=== PATIENT | male | born 1975 | race American Indian/Alaskan Native ===

== ENCOUNTER 2020-05-19 11:55 | Emergency (ER) | payer SELFPAY ==
--- NOTE | 2020-05-19 13:13 | Event Note ---
ED Screening Note Date of service: 05/19/20 Time: 13:09 ED Screening Note: 44-year-old -[place] male presents to the emergency room reporting that he might help to get off of alcohol. Patient denies any suicidal or homicidal ideations. This initial assessment/diagnostic orders/clinical plan/treatment(s) is/are subject to change based on patients health status, clinical progression and re- assessment by fellow clinical providers in the ED. Further treatment and workup at subsequent clinical providers discretion. Patient/guardian urged not to elope from the ED as their condition may be serious if not clinically assessed and managed. Initial orders include:
[2020-05-19] MEDS ORDERED: chlordiazePOXIDE 25 MG CAP PO PRN ×2 (13:50)
[2020-05-19] MEDS ORDERED: LORazepam 2 MG/ML VIAL IV PRN (13:50)
--- NOTE | 2020-05-19 13:51 | Emergency Department Report ---
<DALTON WOLFE - Last Filed: 05/19/20 17:48> ED General Adult HPI - General Chief complaint: Alcohol Stated complaint: DETOX Time Seen by Provider: 05/19/20 13:48 - Related Data Previous Rx's Medication Instructions Recorded Last Taken Type Multivitamin with Folic Acid [[facility] 400 mcg PO QDAY #30 tablet 05/19/20 Unknown Rx One Daily Essential Tablet] Potassium Chloride 20 meq PO QDAY #30 packet 05/19/20 Unknown Rx Allergies Allergy/AdvReac Type Severity Reaction Status Date / Time No Known Allergies Allergy Unverified 05/19/20 12:03 ED Past Medical Hx - Medications Home Medications: Home Medications Medication Instructions Recorded Confirmed Last Taken Type Multivitamin with Folic Acid [[facility] 400 mcg PO QDAY #30 tablet 05/19/20 Unknown Rx One Daily Essential Tablet] Potassium Chloride 20 meq PO QDAY #30 packet 05/19/20 Unknown Rx ED Course - Reevaluation(s) Reevaluation #2: 05/19/20 16:56 gate steady, denies Si/HI, provided outpatient resources, no signs of etoh withdrawal. Case d/w who recommends [facility] during insurance status. Repeat vital normal without tachycardia. Patient's cousin will pick him up. ED Medical Decision Making - Lab Data Result diagrams: 05/19/20 13:36 05/19/20 13:36 ED Disposition Clinical Impression: Hypokalemia, General medical exam Alcohol intoxication Qualifiers: Complication of substance-induced condition: uncomplicated Qualified Code(s): F10.920 - Alcohol use, unspecified with intoxication, uncomplicated Disposition: DC-01 TO HOME OR SELFCARE Is pt being admited?: No Condition: Good Instructions: Hypokalemia, Binge-Drinking Information, Adult Additional Instructions: We recommend that patient avoid consumption of alcohol, cocaine and recreational drugs. Follow-up with a primary care doctor within the next week. Follow-up with outpatient drug abuse resources as recommended. Please return to the emergency room right away with new pain, worsened pain, migration of pain, projectile vomiting, change in mental status, confusion, inability to tolerate liquid feeds, new, worsened or different symptoms not present on the initial emergency room evaluation. Professional and Agency Contacts To help [facility] (15/09) [place] Crisis Line: Suicide Prevention Line: Crisis Text Line: Text [place] to 106524 Emergency: 911 Outpatient COMMUNITY Behavioral Health Resources: [place]: [facility] [address] [place], [place] [address] [place]: [facility] [address] [place] [address] Thursday thru Thursday - 8am - 5pm Call to schedule an assessment for mental health and substance abuse programs [place]: [facility] Address: [address] [place] [address] Thursday thru Thursday- 7am-2pm [facility] Address: [address] [place] [address] Thursday thru Thursday: 8:30AM-5PM SUBSTANCE ABUSE PROGRAMS: [facility]: Location: [place], [place] Address: [address] [place] [address] [facility]: Address: [address] [place] [address] [facility]: Address: [address] [place] [address] [facility]: Address: [address] [place] [address] Prescriptions: Multivitamin with Folic Acid [[facility] One Daily Essential Tablet] 400 mcg PO QDAY #30 tablet Potassium Chloride 20 meq PO QDAY #30 packet Referrals: [facility] [Provider Group] - 3-5 Days [facility] [Outside] - 3-5 Days Time of Disposition: 16:57 <ALIZA TOURE - Last Filed: 05/20/20 10:43> ED General Adult HPI - General PUI?: No Source: patient Mode of arrival: Ambulatory Limitations: Other (Patient is intoxicated) - History of Present Illness Initial comments: The patient was evaluated in the emergency department for symptoms described in the history of present illness. He/she was evaluated in the context of the global COVID-19 pandemic, which necessitated consideration that the patient might be at risk for infection with the virus that causes COVID-19. Institutional protocols and algorithms that pertain to the evaluation of patients at risk for COVID-19 are in a state of rapid change based on information released by regulatory bodies including the CDC and federal and state organizations. These policies and algorithms were followed during the patient's care in the emergency department. Please note that these policies, procedures and recommendations changed on a rapid basis. The patient is a 44-year-old gentleman, who is not known to myself previously, who presents to the ER today with a complaint of painless request for alcohol detox. He denies overdose intentionally, homicidality, suicidality, hallucinati ons, loss of taste and smell, physical pain, urinary symptoms, and his last alcoholic beverage was earlier on today. He denies additional injuries and complaints. His request for alcohol detox at this point time is constant, painless, does not radiate anywhere, and he does not endorse any exacerbating or relieving factors. Improves with: none Worsens with: none Associated Symptoms: denies other symptoms ED Review of Systems ROS: Stated complaint: DETOX Other details as noted in HPI Comment: All other systems reviewed and negative ED Past Medical Hx - Past Medical History Previous Medical History?: No - Surgical History Past Surgical History?: No - Social History Smoking Status: Current Some Day Smoker Substance Use Type: Alcohol ED Physical Exam - General Limitations: Other (The patient is currently intoxicated) General appearance: in no apparent distress, appears intoxicated - Head Head exam: Present: atraumatic, normocephalic - Eye Eye exam: Present: normal appearance, EOMI. Absent: nystagmus - ENT ENT exam: Present: normal exam, normal orophraynx, mucous membranes moist, normal external ear exam - Neck Neck exam: Present: normal inspection, full ROM. Absent: tenderness, meningismus - Respiratory Respiratory exam: Present: normal lung sounds bilaterally. Absent: respiratory distress, wheezes, rales, rhonchi, stridor, decreased breath sounds - Cardiovascular Cardiovascular Exam: Present: regular rate, normal rhythm, normal heart sounds. Absent: bradycardia, tachycardia, irregular rhythm, systolic murmur, diastolic murmur, rubs, gallop - GI/Abdominal GI/Abdominal exam: Present: soft. Absent: distended, tenderness, guarding, rebound, rigid, pulsatile mass - Rectal Rectal exam: Present: deferred - Extremities Exam Extremities exam: Present: normal inspection, full ROM, other (2+ pulses noted in the bilateral upper and lower extremities. There is no palpable cord. negative Homans sign. Muscular compartments are soft. The pelvis is stable.). Absent: pedal edema, calf tenderness - Back Exam Back exam: Present: normal inspection, full ROM. Absent: tenderness, CVA te nderness (R), CVA tenderness (L), paraspinal tenderness, vertebral tenderness - Neurological Exam Neurological exam: Present: alert, other (No facial droop. Tongue midline. Extraocular movements intact bilaterally. Facial sensation intact to light touch in V1, V2, V3 distribution bilaterally. 5 and a 5 strength in 4 extremities. Sensation intact to light touch in 4 extremities.). Absent: motor sensory deficit - Psychiatric Psychiatric exam: Absent: homicidal ideation, suicidal ideation - Skin Skin exam: Present: warm, dry, intact, normal color. Absent: rash ED Course Vital Signs 05/19/20 05/19/20 12:07 16:39 Temperature 98.3 F 97.4 F L Pulse Rate 82 77 Respiratory 20 20 Rate Blood Pressure 154/86 Blood Pressure 133/97 [Left] O2 Sat by Pulse 98 98 Oximetry - Reevaluation(s) Reevaluation #1: 05/19/20 15:33 Care will be transferred to the oncoming ER physician to reassess and discharge once clinically sober. Blood alcohol level 0.35. ED Medical Decision Making - Lab Data Result diagrams: 05/19/20 13:36 05/19/20 13:36 Vital Signs 05/19/20 12:07 Temperature 98.3 F Pulse Rate 82 Respiratory 20 Rate Blood Pressure 154/86 O2 Sat by Pulse 98 Oximetry Lab Results 05/19/20 05/19/20 05/19/20 Range/Units 13:36 13:36 13:36 Hgb (11.8-15.2) gm/dl Hct (35.5-45.6) % Plt Count (140-440) K/mm3 Sodium 140 (137-145) mmol/L Potassium 3.4 L (3.6-5.0) mmol/L Chloride 101.0 (98-107) mmol/L Carbon Dioxide 28 (22-30) mmol/L Anion Gap 14 mmol/L BUN 7 L (9-20) mg/dL Creatinine 0.8 (0.8-1.3) mg/dL Estimated GFR > 60 ml/min BUN/Creatinine Ratio 9 % Glucose 174 H (75-100) mg/dL Calcium 8.8 (8.4-10.2) mg/dL Magnesium (1.7-2.3) mg/dL Total Bilirubin 0.30 (0.1-1.2) mg/dL AST 20 (5-40) units/L ALT 14 (7-56) units/L Alkaline Phosphatase 46 (35-129) units/L Total Creatine Kinase (55-170) units/L Total Protein 7.2 (6.3-8.2) g/dL Albumin 4.6 (3.9-5) g/dL Albumin/Globulin Ratio 1.8 % Salicylates < 0.3 L (2.8-20.0) mg/dL Acetaminophen 5.0 L (10.0-30.0) ug/mL 05/19/20 05/19/20 Range/Units 13:36 13:36 Hgb 14.8 (11.8-15.2) gm/dl Hct 43.4 (35.5-45.6) % Plt Count 217 (140-440) K/mm3 Sodium (137-145) mmol/L Potassium (3.6-5.0) mmol/L Chloride (98-107) mmol/L Carbon Dioxide (22-30) mmol/L Anion Gap mmol/L BUN (9-20) mg/dL Creatinine (0.8-1.3) mg/dL Estimated GFR ml/min BUN/Creatinine Ratio % Glucose (75-100) mg/dL Calcium (8.4-10.2) mg/dL Magnesium 2.00 (1.7-2.3) mg/dL Total Bilirubin (0.1-1.2) mg/dL AST (5-40) units/L ALT (7-56) units/L Alkaline Phosphatase (35-129) units/L Total Creatine Kinase 73 (55-170) units/L Total Protein (6.3-8.2) g/dL Albumin (3.9-5) g/dL Albumin/Globulin Ratio % Salicylates (2.8-20.0) mg/dL Acetaminophen (10.0-30.0) ug/mL - Medical Decision Making Differential diagnosis, including but not limited to: Alcohol intoxication, electrolyte derangement, general medical exam Assessment and plan: 44-year-old gentleman with what appears to be simple alcohol intoxication, he is not homicidal, not suicidal, he is pleasant and cooperative. Laboratory studies unremarkable with exception of very mild hypokalemia. Patient does not meet criteria for 1013 hold. Patient will be provided with outpatient resources for alcohol detox. He is not currently tachycardic or tremulous, and he has no tongue fasciculations. Holding orders are initiated. Patient will be observed in this emergency room pending clinical sobriety. Once clinically sober, or if/when a sober adult can come by and pick him up, he may be discharged with outpatient alcohol detox follow-up/resources. Do not have clinical question at this time for psychiatry team or mental health providers, as this patient is not homicidal or suicidal at this time, and once ailyn up, should be suitable for outpatient management Critical care attestation.: If time is entered above; I have spent that time in minutes in the direct care of this critically ill patient, excluding procedure time. ED Disposition Is pt being admited?: No Does the pt Need Aspirin: No
[2020-05-19 14:01] LABS: Hematocrit 43.4 % (35.5-45.6); Hemoglobin 14.8 gm/dl (11.8-15.2)
[2020-05-19 14:17] LABS: Alanine Aminotransferase 14 units/L (7-56); Albumin 4.6 g/dL (3.9-5); BUN/Creatinine Ratio 9; Blood Urea Nitrogen 7 mg/dL (9-20); Calcium 8.8 mg/dL (8.4-10.2); Hemolysis Index 5
[2020-05-19] MEDS ORDERED: POTASSIUM CHLORIDE ER 20 MEQ TAB PO ONE (14:35)
[2020-05-19] MEDS ORDERED: ACETAMINOPHEN 325 MG TAB PO PRN (14:35)
[2020-05-19] MEDS ORDERED: FAMOTIDINE 20 MG TAB PO PRN (14:35)
[2020-05-19] MEDS ORDERED: DEXTROSE 50% IN WATER (25GM) 50 ML SYRINGE IV PRN (14:35)
[2020-05-19] MEDS ORDERED: ONDANSETRON 4 MG ODT TAB PO PRN (14:35)
[2020-05-19 16:45] VITALS: BP 133/97
== END 2020-05-19 18:08 | disposition home or self-care (01) ==
LOC: ED 11:55
DX: F10.920 Alcohol use, unspecified with intoxication, uncomplicated (principal); E87.6 Hypokalemia; F17.200 Nicotine dependence, unspecified, uncomplicated; Z00.01 Encounter for general adult medical examination with abnormal findings; Z79.899 Other long term (current) drug therapy
CPT/HCPCS: 36415; 80053; 80320; 82550; 83735; 85014; 85018; 85049; G0480

== ENCOUNTER 2020-05-19 23:57 | Emergency (ER) | payer OTHER ==
[2020-05-20 03:23] VITALS: BP 144/87
[2020-05-20 03:58] LABS: Bilirubin,Urine NEG (Negative); Blood,Urine NEG (Negative); Color,Urine Yellow (Yellow); Mucus,Urine FEW /HPF; Protein,Urine <15 mg/dL mg/dL (Negative)
[2020-05-20 04:05] LABS: Amphetamine Screen,Urine PRESUMPTIVE NEGATIVE; Benzodiazepines Screen,Urine PRESUMPTIVE NEGATIVE; Cannabinoid Screen,Urine PRESUMPTIVE NEGATIVE; Cocaine Screen,Urine PRESUMPTIVE NEGATIVE; Methadone Screen,Urine PRESUMPTIVE NEGATIVE; Opiate Screen,Urine PRESUMPTIVE NEGATIVE
== END 2020-05-20 03:30 | disposition left against medical advice (07) ==
LOC: ED 23:57
DX: F10.239 Alcohol dependence with withdrawal, unspecified (principal); Z53.21 Procedure and treatment not carried out due to patient leaving prior to being seen by health care provider
CPT/HCPCS: 36415; 80053; 80307; 80320; 81001; 82550; 83735; 85014; 85018; 85049; G0480